=== PATIENT | female | born 2000 | race Caucasian/White ===

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

== ENCOUNTER 2020-06-18 21:35 | Emergency (ER) | payer MEDICAID ==
[~2020-06-18] VITALS: Ht 149.9 cm; Wt 48.1 kg
[2020-06-18 21:39] VITALS: BP 121/85
[2020-06-18 22:55] VITALS: BP 121/85
== END 2020-06-18 22:56 | disposition home or self-care (01) ==
LOC: MED 21:35
DX: J02.8 Acute pharyngitis due to other specified organisms (principal); Z20.828 Contact with and (suspected) exposure to other viral communicable diseases; B97.89 Other viral agents as the cause of diseases classified elsewhere
CPT/HCPCS: 81025; 87081; 99283; U0003

== ENCOUNTER 2020-12-28 10:42 | Emergency (ER) | payer MEDICAID ==
[~2020-12-28] VITALS: Ht 149.9 cm; Wt 45.4 kg
[2020-12-28 10:46] VITALS: BP 92/53
[2020-12-28] MEDS ORDERED: POLY10SO3 OP (11:19)
[2020-12-28 11:29] VITALS: BP 92/53
== END 2020-12-28 11:31 | disposition home or self-care (01) ==
LOC: MED 10:42
DX: H10.9 Unspecified conjunctivitis (principal); Z79.899 Other long term (current) drug therapy
CPT/HCPCS: 99283

== ENCOUNTER 2021-11-25 23:12 | Emergency (ER) | payer MEDICAID ==
[~2021-11-25] VITALS: Ht 149.9 cm; Wt 52.4 kg
[~2021-11-25 23:12] MED LIST: POLY10SO3 OP
[2021-11-25 23:23] VITALS: BP 141/82
[2021-11-26] MEDS ORDERED: IBUP-2213 PO (00:34)
[2021-11-26 00:40] VITALS: BP 112/65
== END 2021-11-26 00:40 | disposition home or self-care (01) ==
LOC: MED 23:12
DX: R51.9 Headache, unspecified (principal); R20.2 Paresthesia of skin; R11.2 Nausea with vomiting, unspecified; Z79.899 Other long term (current) drug therapy
CPT/HCPCS: 81002; 81025; 99282

== ENCOUNTER 2022-06-30 21:19 | Emergency (ER) | payer BC, MEDICAID ==
[~2022-06-30] VITALS: Ht 149.9 cm; Wt 52.2 kg
[~2022-06-30 21:19] MED LIST changes: +IBUP-2213 PO
[2022-06-30 22:29] VITALS: BP 138/98
[2022-06-30] MEDS ORDERED: IBUPROFEN 400 MG TAB PO ONE (22:35)
--- NOTE | 2022-06-30 22:37 | NUR ---
TO [facility]. COOLING MEASURES INITIATED
[2022-06-30] MEDS ORDERED: IBUPROFEN 400 MG TAB ONE (22:39)
--- NOTE | 2022-06-30 22:41 | NUR ---
PATIENT MEDICATED AND PLACED IN LOBBY
[2022-06-30] MEDS ORDERED: ROB PO (23:49)
[2022-06-30] MEDS ORDERED: ALBU0.0912 IH (23:49)
--- NOTE | 2022-06-30 23:58 | NUR ---
Patient discharged with v/s stable. Written and verbal after care instructions given and explained. Patient alert, oriented and verbalized understanding of instructions. Ambulatory with steady gait. All questions addressed prior to discharge. ID band removed. Patient advised to follow up with PMD. Rx of ROBITTUSIN, AND ALBUTEROL given. Patient educated on indication of medication including possible reaction and side effects. Opportunity to ask questions provided and answered.
== END 2022-06-30 23:58 | disposition home or self-care (01) ==
LOC: MED 21:19
DX: J06.9 Acute upper respiratory infection, unspecified (principal)
CPT/HCPCS: 99283